=== PATIENT | female | born 1950 | race Caucasian/White ===

== ENCOUNTER → 2017-02-08 | Outpatient (CLI) | payer OTHER ==
[~2017-02-08] MED LIST: ACET-1256 PO; AMLO-114 PO; CBCI; MELO15TA10 PO; MISCCAP80; PRLSR20 PO; RIZA10TA19 PO; SULF500T2 PO; TRAZ50TA35 PO; ZOLP10TA PO
--- NOTE | 2017-02-11 07:49 | MAMMOGRAPHY REPORT ---
BILATERAL DIGITAL SCREENING MAMMOGRAM TOMOSYNTHESIS WITH CAD: 02/08/2017 CLINICAL HISTORY: Routine screening examination. TECHNIQUE: Breast tomosynthesis in addition to standard 2D mammography was performed. Current study was also evaluated with a Computer Aided Detection (CAD) system. COMPARISON: Comparison is made to exams dated: 01/17/2016 ultrasound, 01/17/2016 mammogram, 12/29/2015 mammogram, 11/10/2014 mammogram, 11/10/2013 mammogram, and 08/22/2011 mammogram - [facility]. BREAST COMPOSITION: The tissue of both breasts is heterogeneously dense, which may obscure small mas ses. FINDINGS: There is stable nodularity in the middle and anterior one third of the left breast on the M LO view. Scattered benign-appearing microcalcifications. No new suspicious mass, architectural dist ortion or cluster of microcalcifications is seen. IMPRESSION: ACR BI-RADS CATEGORY 1: NEGATIVE There is no mammographic evidence of malignancy. A 1 year screening mammogram is recommended. The pa tient will receive written notification of the results. Approximately 10% of breast cancers are not detected with mammography. A negative mammographic report should not delay biopsy if a clinically suggestive mass is present. Audrey Torres M.D. ay/:02/09/2017 08:59:43 Real Estate Agent: Amirah MARTINEZ)(M), [facility] letter sent: Normal 1/2 BI-RADS Code: ACR BI-RADS Category 1: Negative
== END | disposition home or self-care (01) ==
LOC: C.MAMM 10:03
PROVIDERS: ATTEND Family Medicine
DX: Z12.31 Encounter for screening mammogram for malignant neoplasm of breast (principal)

== ENCOUNTER 2018-12-09 07:54 | Inpatient (IN) ==
--- NOTE | 2018-11-13 13:13 | PAT Medication Instructions ---
Medication Instructions Date of Service November 13, 2018 Home Medications acetaminophen [Tylenol Extra Strength] 1,000 mg PO UD PRN adalimumab [Humira Pen] 40 mg SUBCUT UD amlodipine 10 mg PO QAM cholecalciferol (vitamin D3) [Vitamin D3] 5,000 unit PO 3XWK clonazepam 1 mg PO HS ferrous sulfate 325 mg PO BID folic acid 1 mg PO QAM lisinopril 5 mg PO QAM loratadine 10 mg PO QAM meloxicam 15 mg PO QAM mometasone 1 applic TOPICAL UD PRN omeprazole 20 mg PO BID rizatriptan [Maxalt-POWER PRESS OPERATOR] 10 mg PO UD PRN sulfasalazine 1 g PO TID trazodone 50 mg PO HS ASK your surgeon for instructions meloxicam 15 mg PO QAM ASK your prescriber and surgeon adalimumab [Humira Pen] 40 mg SUBCUT UD sulfasalazine 1 g PO TID STOP taking 24 hours before surgery mometasone 1 applic TOPICAL UD PRN DO NOT take the morning of surgery cholecalciferol (vitamin D3) [Vitamin D3] 5,000 unit PO 3XWK ferrous sulfate 325 mg PO BID folic acid 1 mg PO QAM lisinopril 5 mg PO QAM loratadine 10 mg PO QAM Take morning of surgery With a small sip of water, OTHERWISE NOTHING TO EAT OR DRINK AFTER MIDNIGHT: acetaminophen [Tylenol Extra Strength] 1,000 mg PO UD PRN (okay to take up to 4 hours prior to surgery if needed) amlodipine 10 mg PO QAM omeprazole 20 mg PO BID rizatriptan [Maxalt-POWER PRESS OPERATOR] 10 mg PO UD PRN (if needed) Take evening before surgery acetaminophen [Tylenol Extra Strength] 1,000 mg PO UD PRN (if needed) clonazepam 1 mg PO HS ferrous sulfate 325 mg PO BID omeprazole 20 mg PO BID rizatriptan [Maxalt-POWER PRESS OPERATOR] 10 mg PO UD PRN (if needed) trazodone 50 mg PO HS Other Notes If you have any questions please call us at [phone] or [phone] or [phone] or [phone]
--- NOTE | 2018-11-14 08:21 | Anesthesiology Consultation ---
Date of Service November 14, 2018 Assessment & Plan (1) Encounter for pre-operative examination: Chart Review Chart Review: Acceptable Risk for Surgery (pending preop testing (labs, EKG, CXR)) and Patient seen in Pre Admission Testing Teaching & Discussion Pre-Anesthesia Teaching/Discussion Notes: Instructed NPO after midnight before surgery,except medications with 15 cc of water. Medication instructions provided according to the PAT guidelines. History Surgery Operation Date: 12/09/18 07:00 Proposed Procedures p Right Total Knee Arthroplasty - Triston Salmon MD Height/Weight Height: 5 ft 3 in Weight: 90.2 kg Allergies Allergy/AdvReac Type Severity Reaction Status Date / Time latex Allergy Mild mild rash Verified 11/07/18 07:57 amoxicillin Allergy Unknown Rash Verified 11/07/18 07:57 cephalexin Allergy Unknown ABD PAIN, Verified 11/07/18 07:57 DIARRHEA , COUGH rosuvastatin AdvReac Unknown MUSCLE PAIN Verified 11/07/18 07:57 simvastatin AdvReac Unknown MUSCLE PAIN Verified 11/07/18 07:57 Medications Home Medications Medication Instructions Recorded Confirmed Last Taken acetaminophen [Tylenol Extra 1,000 mg PO UD PRN 11/07/18 11/07/18 Unknown Strength] adalimumab [Humira Pen] 40 mg SUBCUT UD 11/07/18 11/07/18 Unknown amlodipine 10 mg PO QAM 11/07/18 11/07/18 Unknown cholecalciferol (vitamin D3) 5,000 unit PO 3XWK 11/07/18 11/07/18 Unknown [Vitamin D3] clonazepam 1 mg PO HS 11/07/18 11/07/18 Unknown ferrous sulfate 325 mg PO BID 11/07/18 11/07/18 Unknown folic acid 1 mg PO QAM 11/07/18 11/07/18 Unknown lisinopril 5 mg PO QAM 11/07/18 11/07/18 Unknown loratadine 10 mg PO QAM 11/07/18 11/07/18 Unknown meloxicam 15 mg PO QAM 11/07/18 11/07/18 Unknown mometasone 1 applic TOPICAL UD PRN 11/07/18 11/07/18 Unknown omeprazole 20 mg PO BID 11/07/18 11/07/18 Unknown rizatriptan [Maxalt-HVAC SHEET METAL INSTALLER] 10 mg PO UD PRN 11/07/18 11/07/18 Unknown sulfasalazine 1 g PO TID 11/07/18 11/07/18 Unknown trazodone 50 mg PO HS 11/07/18 11/07/18 Unknown Past Medical History Medical History Acid reflux controlled Anxiety and depression Borderline high cholesterol History of anemia History of migraine headaches Hypertension Obesity Osteoarthritis Psoriasis Ulcerative colitis stable Exercise / Class Metabolic Activity II 4-5 Yardwork/Stairs/Walk up hill Past Surgical History Surgical History History of appendectomy History of section History of colonoscopy History of esophagogastroduodenoscopy (EGD) History of oral surgery FOR MALOCLUSION (NO ROM LIMITATIONS) History of surgery on extremity L LEG TIBIAL PLATEU FX & HARDWARE SINCE REMOVED L ELBOW FRACTURE & HARDWARE SINCE REMOVED History of tonsillectomy and adenoidectomy History of tubal ligation Past Anesthesia History No Family Hx of Anesthesia Complications and Other "Tried to climb out of bed" after jaw surgery. No issues with other surgeries. History of PONV No Hx of PONV and No Hx of Motion Sickness Social History Smoking Status: Never smoker Do You Dip or Chew Tobacco: No Hx Alcohol Use: No substance use type: does not use Review of Systems Reflux controlled. Chronic dry cough (felt seasonally related). Patient denies chest pain, shortness of breath, dyspnea on exertion, wheezing, palpitations. Physical Exam Vital Signs VITALS BP 132/81 P 77 TEMP 97.4 SP02 96%RA RESP 18 PHYSICAL Full neck and c-spine range of motion. Full TMJ range of motion. TMD 3 finger breaths Mallampati Score 1 Dentition: chipped molar, several missing sides/molars Lungs: clear throughout to auscultation Cardiac: regular rate and rhythm, no murmurs noted Spine: normal Carotid arteries: negative bruit Extremities: no edema
--- NOTE | 2018-11-14 09:02 | XRay Report ---
XR chest Pre-admission PA/Lat CLINICAL HISTORY: Preoperative evaluation. COMPARISON STUDY: Chest radiograph September 09, 2014. FINDINGS: Lung lungs are mildly diminished. Elevation of the right hemidiaphragm is unchanged. Linear bibasilar opacities reflect atelectasis or scarring. There is no evidence for pulmonary edema or pne umonia. Moderate enlargement of the cardiac silhouette is noted. IMPRESSION: 1. No acute cardiopulmonary findings. 2. Mild cardiomegaly. 3. Mild elevation of the right hemidiaphragm. Electronically signed by: Favian Stuart M.D. 11/14/2018 9:00 AM
[2018-11-14 10:32] LABS: Basophils # (auto) 0.01 K/uL (0-0.2); Basophils % (auto) 0.2 %; Eosinophils # (auto) 0.25 K/uL (0-0.5); Eosinophils % (auto) 5.2 %; Hematocrit (blood only) 40.1 % (37-47); Hemoglobin 13.7 g/dL (12.0-16.0); Immature Granulocytes # (auto) 0.01 K/uL (0.00-0.02); Immature Granulocytes % (auto) 0.2 %; Mean Corpuscular Hemoglobin 32.1 pg (25-34); Mean Corpuscular Hgb Conc 34.2 g/dL (32-36); Mean Corpuscular Volume 93.9 fL (80-100); Mean Platelet Volume 9.5 fL (7.4-10.4); Monocytes # (auto) 0.61 K/uL (0.11-0.59); Monocytes % (auto) 12.6 %; Neutrophils # (auto) 2.46 K/uL (1.4-6.5); Neutrophils % (auto) 50.8 %; Platelet Count 226 K/uL (130-400); RDW Coefficient of Variation 13.4 % (11.5-14.5); Red Blood Count 4.27 M/uL (4.2-5.4); White Blood Count 4.84 K/uL (4.8-10.8)
[2018-11-14 10:39] LABS: BUN Creatinine Ratio 16.9 (10-20); Calcium 9.3 mg/dl (8.5-10.1); Creatinine Clr Calc Pharmacy 78.6 ml/min; Est GFR (African American) 97.2; Est GFR (Non-African American) 83.8
[2018-11-14 10:44] LABS: Partial Thromboplastin Ratio 0.9; Partial Thromboplastin Time 25.1 Seconds (21.0-31.0); Prothrombin Time 10.4 Seconds (9.0-12.0)
--- NOTE | 2018-12-06 09:34 | History and Physical Report ---
DATE OF ADMISSION: 12/09/2018 CHIEF COMPLAINT: Bilateral knee pain and discomfort, right side greater than left. HISTORY OF PRESENT ILLNESS: The patient is a 68-year-old female who presents for surgical treatment of her right knee. She has got a long history of bilateral knee pain and discomfort that has gradually gotten worse over time. She does have a history of a tibial plateau fracture in the left knee in the past. She continues to be bothered by knee pain. The right knee is a bit worse than the left. Symptoms tend to wax and wane, but it has become more bothersome over time. The more she walks, the more it hurts. If she is active, she pays for it for the next several days. She has nighttime discomfort. She limps more as the day goes on. She would like to have her right knee fixed. PAST MEDICAL HISTORY: 1. Hypertension. 2. Elevated cholesterol. 3. Anxiety. 4. Migraine headaches. 5. Chronic anemia. 6. History of ulcerative colitis. 7. Gastroesophageal reflux disease. 8. Obesity with BMI of 35. PAST SURGICAL HISTORY: Previous surgeries include: 1. T and A. 2. Appendectomy. 3. . 4. Jaw surgery for TMJ. 5. Elbow fracture. 6. Left tibial plateau fracture and subsequent hardware removal. ALLERGIES: KEFLEX WHICH CAUSES DIARRHEA AND A RASH. NOT A TRUE ALLERGIC REACTION. ALSO DESCRIBES ALLERGIES TO STATINS AND LATEX. CURRENT MEDICINES: Include: 1. Amlodipine 10 mg. 2. Lisinopril 5 mg a day. 3. Meloxicam 15 mg a day. 4. Iron sulfate 325 twice a day. 5. Omeprazole 20 mg. 6. Loratadine 10 mg. 7. Trazodone 50 mg at nighttime. 8. Maxalt 10 mg a day. 9. Clonazepam at nighttime. 10. Vitamin D. 11. Humira. SOCIAL HISTORY: A 68-year-old female. She is from [place]. Does not smoke. FAMILY HISTORY: Noncontributory. REVIEW OF SYSTEMS: Significant for underlying ulcerative colitis. She is on Humira. Denies any current chest pain or shortness of breath. No history of DVT or PE. No known bleeding problems. PHYSICAL EXAMINATION: GENERAL: A pleasant, middle-aged female. Looks to be in reasonably good health. HEENT: Benign. NECK: Supple. No lymphadenopathy. LUNGS: Clear to auscultation. HEART: Regular rate and rhythm. ABDOMEN: Soft, nontender, nondistended. EXTREMITIES: Grossly neurovascularly intact except as follows: Examination of the right knee reveals the patient to be ambulates independently. Fairly neutral alignment to her knee. She has got some bony hypertrophy medially and laterally. Small knee effusion. Range of motion 5-120. No instability. No pain with hip motion. X-RAYS: X-rays of the knee reveal advanced bilateral knee DJD. She has got tricompartment disease in the right with a near complete loss of the joint space in all 3 compartments. She has got osteophytes in all 3 compartments. Diffuse osteopenia. ASSESSMENT: A 68-year-old white female with advanced bilateral knee degenerative joint disease, right side more severe than the left. She has a history of ulcerative colitis and likely some type of inflammatory arthritis. She has failed conservative treatment and would like to proceed with right knee replacement. PLAN: We will take her to the Operating Room and do a right total knee replacement. The risks and benefits of this procedure were explained to the patient including but not limited to DVT, PE, , infection, neurological injury, vascular injury, bleeding problem, pain, limited range of motion, stiffness, failure to relieve symptoms, incomplete relief of symptoms, need for further surgery in future, fracture, leg length inequality, nerve palsy, persistent pain, etc. The patient understands and desires to proceed. Informed consent was obtained. We did talk about holding her lisinopril the morning of surgery and the Humira a week before. She will hold her meloxicam 10 days preop. As far as discharge plans, she is planning to be discharged home using [facility]. Her and daughter will assist in her care at home. We will likely put some vancomycin in her cement due to her history of ulcerative colitis and immunocompromised status.
[~2018-12-09 07:54] MED LIST changes: -ACET-1256 PO; +ACETAMINOPHEN 500 MG TAB PO SCH; -AMLO-114 PO; +BUPIVACAINE 0.5 % 5 MG/1 ML PF 10ML VIAL ONE; +BUPIVACAINE LIPOSOME/PF 266 MG, BUPIVACAINE/EPINEPHRINE 50 ML, SODIUM CHLORIDE 0.9% 30 ... INFIL SCH; -CBCI; +FAMOTIDINE 20 MG TAB PO SCH; +GABAPENTIN 300 MG CAP PO SCH; +LR 500ML BOLUS, THEN 15ML/HR IV SCH; +LR 60ML/HR IV SCH; -MELO15TA10 PO; +METOCLOPRAMIDE HCL 10 MG TABLET PO SCH; -MISCCAP80; -PRLSR20 PO; -RIZA10TA19 PO; +ROPIVACAINE 0.5% 5 MG/ML 30 ML VIAL ONE; -SULF500T2 PO; +TRANEXAMIC ACID 1,000 MG **IV Intra-op IV SCH; -TRAZ50TA35 PO; +VANCOMYCIN HCL 1,250 MG in SODIUM CHLORIDE 0.9% 250 ML IV SCH; +VANCOMYCIN HCL IV SCH; -ZOLP10TA PO
--- NOTE | 2018-12-09 08:54 | History & Physical Bridge Note ---
Date of Service December 09, 2018 History & Physical Bridge Note I have examined the patient, reviewed the History & Physical and in the interval since the performance of the History & Physical I have noted the following changes of clinical significance: no changes noted.. Patient with Bilateral Knee DJD. She would like an injection into the left knee while under anesthesia.
[2018-12-09] MEDS ORDERED: fentaNYL citrate 100 MCG/2 ML VIAL ONE (10:46)
[2018-12-09] MEDS ORDERED: PROPOFOL IV EMULSION 10 MG/ML 20 ML VIAL IV ONE (10:46)
[2018-12-09] MEDS ORDERED: MIDAZOLAM HCL 1 MG/ML 2ML VIAL ONE (10:46)
[2018-12-09] MEDS ORDERED: LIDOCAINE HCL 2% 2 ML VIAL/AMP(20MG/ML) INFIL ONE (10:46)
[2018-12-09] MEDS ORDERED: SODIUM CHLORIDE 0.9% PF 50 ML VIAL ONE (11:24)
[2018-12-09] MEDS ORDERED: BUPIVACAINE/EPINEPHRINE 0.25% 1:200,000 30 ML VIAL ONE (11:24)
[2018-12-09] MEDS ORDERED: BUPIVACAINE LIPOSOME 1.3% 266 MG/20 ML VIAL ONE (11:24)
[2018-12-09] MEDS ORDERED: BACITRACIN INJ 50,000 UNIT VIAL ONE (11:24)
[2018-12-09] MEDS ORDERED: BUPIVACAINE 0.5 % 5 MG/1 ML MPF 30ML VIAL ONE (11:32)
[2018-12-09] MEDS ORDERED: VANCOMYCIN HCL 1000MG/20ML VIAL ONE (11:37)
[2018-12-09] MEDS ORDERED: CLINDAMYCIN PHOS 300 MG/2 ML VIAL ONE (11:57)
[2018-12-09] MEDS ORDERED: CLINDAMYCIN 600 MG/54 ML BAG IV SCH (12:45)
[2018-12-09] MEDS ORDERED: BETAMETH SOD PHOS/ACETATE IA 6 MG/ML IM SCH (12:45)
--- NOTE | 2018-12-09 13:22 | Post Operative Brief Note ---
PG Immediate Post Op with CF Date of Surgery December 09, 2018 Pre & Post Diagnosis Operation Date: 12/09/18 10:40 Pre-Op Diagnosis: Bilateral knee degenerative joint disease, right greater than left Post-Op Diagnosis: Bilateral knee degenerative joint disease, right greater than left Procedure Operation Date: 12/09/18 10:40 Actual Procedures p Right Total Knee Replacement(Right) - Triston Salmon MD s Left knee injection(Left) - Triston Salmon MD Surgeon Triston Salmon MD Electric Engine Mechanic Alonso, PAC Estimated Blood Loss 50 Findings Consistent with Post-Op Diagnosis Fluids 700 cc Specimens Specimen Description: Permanent specimen A: right knee bone and tissue Drains Kim Catheter (16fr silicone kim catheter placed without difficulty; ikm demonstrates clear yellow urine. Output measured and recorded by anesthesia.) Complications none Disposition Accompanied Patient To Recovery: No Disposition: Recovery Room
--- NOTE | 2018-12-09 13:50 | XRay Report ---
XR knee RT 2V routine HISTORY: 68 years-old Female Surgical Post Op right hip total joint arthroplasty. History of degener ative joint disease COMPARISON: Bilateral knee radiographs 04/21/2018 TECHNIQUE: 2 views of the right knee FINDINGS: Satisfactory alignment of the right knee total joint arthroplasty and patella resurfacing. Anterior m idline skin winnie are noted along with expected postsurgical soft tissue swelling and deep tissue a ir with surgical drainage catheter. No acute fracture or retained foreign body identified. IMPRESSION: Satisfactory alignment of the right knee total joint arthroplasty. The above report was generated using voice recognition software. It may contain grammatical, syntax o r spelling errors. Electronically signed by: Red Wolff M.D. 12/09/2018 1:49 PM
[2018-12-09] MEDS ORDERED: METOCLOPRAMIDE HCL INJ 5 MG/ML 2 ML VIAL IV PRN (14:23)
[2018-12-09] MEDS ORDERED: MOMETASONE FUROATE 0.1% CR 15 GM TUBE EXT PRN (14:23)
[2018-12-09] MEDS ORDERED: ALUMINUM/MAGNESIUM SUSP 30 ML UDC PO PRN (14:23)
[2018-12-09] MEDS ORDERED: bisacodyL 10 MG SUPP PR PRN (14:23)
[2018-12-09] MEDS ORDERED: HYDROmorphone INJ 0.5 MG/0.5 ML SYR IV PRN (14:23)
[2018-12-09] MEDS ORDERED: NALOXONE HCL 0.4 MG/1 ML VIAL/CARP IV PRN (14:23)
[2018-12-09] MEDS ORDERED: MAGNESIUM HYDROXIDE SUSP 30 ML UDC PO PRN (14:23)
[2018-12-09] MEDS ORDERED: ONDANSETRON INJ 2 MG/ML 2 ML VIAL IV PRN (14:23)
--- NOTE | 2018-12-09 14:30 | Operative Report ---
DATE OF OPERATION: 12/09/2018 SURGEON: Triston Salmon MD JAVA LEAD DEVELOPER: ADRIANNA Yanez PREOPERATIVE DIAGNOSIS: Bilateral knee degenerative joint disease. POSTOPERATIVE DIAGNOSIS: Bilateral knee degenerative joint disease. PROCEDURE PERFORMED: 1. Right cemented posterior stabilized total knee arthroplasty. 2. Left knee injection with 2 mL Celestone and 8 mL of Marcaine. COMPLICATIONS: None. ESTIMATED BLOOD LOSS: 50 mL. FLUID REPLACEMENT: 700 mL crystalloid fluid replacement. ANESTHESIA: Spinal with adductor canal block. DRAINS: None. SPECIMENS: Right knee sent for pathology. OPERATIVE INDICATIONS: The patient is a 68-year-old fairly active female with history of underlying ulcerative colitis. Over the years, she has developed increased pain, discomfort and arthritic changes in both knees. The right knee has been a bit worse than the left. She had failed conservative treatment. She elected to proceed with total knee arthroplasty. OPERATIVE FINDINGS: Operative findings were advanced right knee DJD. She had grade 4 [id number] disease in all 3 compartments. Diffuse osteopenia. Moderate size joint effusion. Chronic pannus throughout the knee. OPERATIVE IMPLANTS: Operative implants consisted of: 1. Biomet Vanguard size 60 right posterior bifemoral component. 2. Biomet size 67 tibial tray. 3. A 12 mm posterior stabilized polyethylene insert. 4. A 28 x 8 all poly patella. OPERATIVE PROCEDURE: The patient was taken to the operating room, identified and placed on the operating table in supine position. All contact areas were appropriately padded. IV antibiotics provided by anesthesia team. A spinal anesthetic and adductor canal block had been provided in the holding area. Bear catheter was placed in sterile fashion. Right thigh tourniquet was then placed and the right lower extremity was then prepped and draped in usual sterile fashion. The right leg was elevated and exsanguinated with Esmarch and tourniquet was placed at 300 mmHg. An anterior approach of the right knee was then performed through a longitudinal incision centered over the patella. Sharp dissection was carried through subcutaneous tissue down below the extensor mechanism. Medial parapatellar arthrotomy incision was made. Some subperiosteal dissection was carried out medially. The fat pad resected from beneath the patellar tendon. The lateral patellofemoral ligament was released. I did do a complete synovectomy of her pannus, which looked to be chronic. The knee was flexed. The osteophytes were taken off the distal femur. The ACL and PCL were then released from the distal femur and the tibia subluxated anteriorly. External tibial alignment jig was then placed in the anterior face of the tibia and adjusted to 14 mm medially. Proximal tibial cut was made to remove about a millimeter or 2 of bone from most deficient aspect of the medial tibial plateau. Some osteophytes were taken off medial and posteromedially. Tibia sized to a size 67. Attention was then drawn to the femur. The distal femur was entered with a sharp drill. Intramedullary canal was suctioned. A right 5-degree valgus cutting guide was placed. Distal femoral cutting block was pinned in place. Distal femoral cut was made to take an additional 3 mm of bone off the distal femur. The femur was then sized to a size 60. We did downsize this slightly. The AP cutting block was pinned parallel to the epicondylar axis, which was 3 degrees of external rotation. The anterior cut, anterior chamfer cut, posterior cut, posterior chamfer cuts were made. Box cutting guide was placed and adjusted slightly lateral and the box cut was made. The knee was flexed. The remnants of the medial and lateral menisci were excised. The posterior osteophytes were removed. The trial femoral component was placed. The tibial tray was pinned in maximum external rotation and drill and stem punch were used to create defect in proximal tibia for the tibial tray. The knee was then trialed and the 12 mm insert fit most appropriately. Attention was then drawn to patella. The patella was cleaned of all soft tissues. Patella thickness measured 19 mm in thickness and was cut down to 13. It was sized to a size 28 patella. Lug holes were drilled for a 28 patella. Lateral osteophyte was removed. Patella button was placed. Knee was taken through range of motion, patella tracked nicely with no thumbs test. Attention was then turned toward placement of permanent components. All trial components were removed. A bone plug was placed in the distal femur to limit blood loss. A double batch of Palacos G cement was mixed. I did add an additional gram of vancomycin due to her immune compromised state due to her ulcerative colitis and on immunosuppressant medicines. A Biomet Vanguard size 60 right posterior bifemoral component, size 67 tibial tray, a 12 mm posterior stabilized polyethylene insert, and a 28 x 8 all poly patella then cemented in place. Knee was brought into full extension until cement hardened. Final cement check was then performed. Pericapsular tissues were injected with a total of 100 mL of combination of 20 mL of Exparel, 30 mL of normal saline, 50 mL of 0.25% Marcaine with epinephrine. The patient did receive 1 gram of tranexamic acid. The tourniquet was then let down for final tourniquet time of 56 minutes. Hemostasis was assured with use of electrocautery. The wound was once again irrigated. The extensor mechanism was then closed with combination of #1 PDS suture and #1 Vicryl suture in [id number] fashion. Extensor mechanism was checked and found to be intact. The subcutaneous tissue was then closed with #2 Dexon suture in a buried interrupted fashion. Skin was closed with skin winnie. Leg was then cleaned and dried and a sterile dressing of Xeroform, 4 x 4, sterile cast padding and Giovanni bandage were applied. The patient then transferred to the recovery room in stable condition. The patient tolerated the procedure well with no complications. All needle and sponge counts were correct at the end of the operation. ADDENDUM At the beginning of the operation after the patient was anesthetized and placed on the operating table, the left knee was injected. I cleaned the left knee joint with alcohol and then 2 mL of Celestone and 8 mL of Marcaine injected in the left knee in a sterile fashion. A sterile bandage was placed over the injection site. I attest to the content of the Intraoperative Record and any orders documented therein. Any exception s are noted below.
[2018-12-09] MEDS ORDERED: RIZATRIPTAN BENZOATE MLT 10 MG TAB PO PRN (14:44)
[2018-12-09] MEDS: SODIUM CHLORIDE 0.9% 1000ML 1,000 ML IV SCH (14:48)
[2018-12-09] MEDS: sulfaSALAzine 500 MG TABLET PO SCH ×2 (15:05→20:43)
--- NOTE | 2018-12-09 16:20 | Anesthesiology Progress Note ---
Date of Service December 09, 2018 Anesthesia Post Procedure Vital Signs Vital Signs: Temp Pulse Pulse Resp BP Pulse Ox 12/09/18 15:13 36.3 C L 97 H 18 165/93 H 99 12/09/18 14:50 36.4 C L 96 H 12 151/88 H 95 12/09/18 14:20 36.5 C 96 H 20 139/81 95 12/09/18 14:00 36.4 C L 92 H 15 126/75 100 12/09/18 13:45 90 23 125/73 100 12/09/18 13:35 91 H 23 129/66 100 12/09/18 13:29 36.1 C L 98 H 16 126/71 99 12/09/18 08:38 36.5 C 96 H 20 171/94 H 96 Pain Intensity Bilateral Knee: Pain Intensity: 3 Transfer of Care Handoff Completed per policy Notes Mental Status: alert / awake / arousable Patient Amnestic to Procedure: Yes Nausea / Vomiting: adequately controlled Pain: adequately controlled Airway Patency, RR, SpO2: stable & adequate BP & HR: stable & adequate Hydration State: stable & adequate Anesthetic Complications: no major complications apparent and Pt Satisfied with anesthetic care
[2018-12-09] MEDS: OXYCODONE HCL IR 5 MG TAB (IMMEDIATE RELEASE) PO PRN (16:51)
[2018-12-09] MEDS: ACETAMINOPHEN 500 MG TAB PO SCH (16:52)
[2018-12-09] MEDS: KETOROLAC TROMETHAMINE 15 MG/ML VIAL IV SCH ×2 (16:53→22:23)
[2018-12-09] MEDS: ASCORBIC ACID 500 MG TAB PO SCH (16:56)
[2018-12-09] MEDS: FERROUS GLUCONATE 324 MG TAB PO SCH (16:57)
[2018-12-09] MEDS ORDERED: TRANEXAMIC ACID 1,000 MG in 0.9 % SODIUM CHLORIDE 100 ML IV SCH (19:23)
[2018-12-09] MEDS: CLINDAMYCIN 600 MG in DEXTROSE 5% 50 ML IV SCH (20:36)
[2018-12-09] MEDS: TAPENTADOL HCL ER 50 MG TABCR PO SCH (20:37)
[2018-12-09] MEDS: PANTOprazole 40 MG TAB PO SCH (20:42)
[2018-12-09] MEDS: TRAZODONE HCL 50 MG TAB PO SCH (20:42)
[2018-12-09] MEDS: clonazePAM 1 MG TAB PO SCH (20:42)
[2018-12-09] MEDS: SENNA 8.6 MG TAB PO SCH (20:43)
[2018-12-09] MEDS: DOCUSATE SODIUM 100 MG CAP PO SCH (20:43)
[2018-12-09] MEDS: ASPIRIN 81 MG ECTAB PO SCH (20:44)
[2018-12-09] MEDS ORDERED: NON-FORMULARY MEDICATION (Ferrous Sulfate 325 MG) PO SCH (21:00)
[2018-12-09] MEDS: MISSING PHYSICIAN SIGNATURE ON ORDER SCH ×5 (22:11→22:20)
[2018-12-10] MEDS: SODIUM CHLORIDE 0.9% 1000ML 1,000 ML IV SCH (00:21)
[2018-12-10] MEDS: OXYCODONE HCL IR 5 MG TAB (IMMEDIATE RELEASE) PO PRN ×4 (00:21→23:49)
[2018-12-10] MEDS: CLINDAMYCIN 600 MG in DEXTROSE 5% 50 ML IV SCH (03:20)
[2018-12-10] MEDS: KETOROLAC TROMETHAMINE 15 MG/ML VIAL IV SCH ×4 (03:21→21:47)
[2018-12-10] MEDS: ACETAMINOPHEN 500 MG TAB PO SCH ×3 (05:49→21:47)
[2018-12-10 05:57] LABS: Hematocrit (blood only) 34.9 % (37-47); Mean Corpuscular Hemoglobin 31.6 pg (25-34); Mean Corpuscular Hgb Conc 34.4 g/dL (32-36); Mean Corpuscular Volume 91.8 fL (80-100); Mean Platelet Volume 9.2 fL (7.4-10.4); Platelet Count 218 K/uL (130-400); RDW Coefficient of Variation 13.1 % (11.5-14.5); RDW Standard Deviation 43.9 fL (36.4-46.3); White Blood Count 12.88 K/uL (4.8-10.8)
[2018-12-10 06:34] LABS: Calcium 8.1 mg/dl (8.5-10.1); Creatinine Clr Calc Pharmacy 76.1 ml/min; Est GFR (African American) 94.1; Est GFR (Non-African American) 81.2; Potassium 3.7 mmol/L (3.5-5.1)
[2018-12-10] MEDS: MULTIVITAMIN TAB PO SCH (08:24)
[2018-12-10] MEDS: lisinopriL 5 MG TAB PO SCH (08:25)
[2018-12-10] MEDS: sulfaSALAzine 500 MG TABLET PO SCH ×3 (08:25→20:29)
[2018-12-10] MEDS: LORATADINE 10 MG TAB PO SCH (08:25)
[2018-12-10] MEDS: ASPIRIN 81 MG ECTAB PO SCH ×2 (08:26→20:28)
[2018-12-10] MEDS: FOLIC ACID 1 MG TAB PO SCH (08:26)
[2018-12-10] MEDS: AMLODIPINE BESYLATE 5 MG TAB PO SCH (08:27)
[2018-12-10] MEDS: DOCUSATE SODIUM 100 MG CAP PO SCH ×2 (08:27→20:29)
[2018-12-10] MEDS: PANTOprazole 40 MG TAB PO SCH ×2 (08:27→20:28)
[2018-12-10] MEDS: ASCORBIC ACID 500 MG TAB PO SCH ×2 (08:28→16:33)
[2018-12-10] MEDS: FERROUS GLUCONATE 324 MG TAB PO SCH ×2 (08:28→16:32)
[2018-12-10] MEDS: TAPENTADOL HCL ER 50 MG TABCR PO SCH ×2 (08:40→20:29)
--- NOTE | 2018-12-10 08:48 | Anesthesiology Progress Note ---
Date of Service December 10, 2018 Anesthesia Post Procedure Vital Signs Vital Signs: Temp Pulse Pulse Resp BP Pulse Ox 12/10/18 07:43 36.7 C 83 16 144/75 H 95 12/10/18 03:49 36.7 C 76 16 115/71 93 12/09/18 23:10 36.7 C 88 16 123/74 90 12/09/18 20:06 36.5 C 98 H 16 143/79 H 96 12/09/18 17:39 36.4 C L 91 H 16 150/76 H 94 12/09/18 17:04 36.4 C L 92 H 16 161/71 H 93 12/09/18 15:13 36.3 C L 97 H 18 165/93 H 99 12/09/18 14:50 36.4 C L 96 H 12 151/88 H 95 12/09/18 14:20 36.5 C 96 H 20 139/81 95 12/09/18 14:00 36.4 C L 92 H 15 126/75 100 12/09/18 13:45 90 23 125/73 100 12/09/18 13:35 91 H 23 129/66 100 12/09/18 13:29 36.1 C L 98 H 16 126/71 99 Pain Intensity Bilateral Knee: Pain Intensity: 3 Right Knee: Pain Intensity: 2 Notes Mental Status: alert / awake / arousable and participated in evaluation Patient Amnestic to Procedure: Yes Nausea / Vomiting: adequately controlled Pain: adequately controlled Airway Patency, RR, SpO2: stable & adequate BP & HR: stable & adequate Hydration State: stable & adequate Neuraxial Anesthesia: was administered and sensory block resolved Anesthetic Complications: no major complications apparent and Pt Satisfied with anesthetic care
[2018-12-10] MEDS ORDERED: CHOLECALCIFEROL 1,000 UNITS TAB PO SCH (09:00)
--- NOTE | 2018-12-10 12:57 | Progress Note ---
DATE: 12/10/2018 SUBJECTIVE: A 68-year-old white female postop day 1 from right total knee replacement and left knee injection. She is doing pretty well. Pain has been pretty well controlled. No chest pain or shortness of breath. Not feeling dizzy or lightheaded. OBJECTIVE: VITAL SIGNS: Temperature 36.6. Vital signs stable. GENERAL: Reveals a pleasant, middle-aged female. She is sitting on bed, looks pretty comfortable. EXTREMITIES: Examination of the right leg reveals the leg to be well aligned. Dressing is clean, dry and intact. She can dorsiflex and plantarflex her foot appropriately. She is neurologically intact. LABORATORY DATA: Hemoglobin 12.0, hematocrit 34.5. Electrolytes are stable. ASSESSMENT: A 68-year-old white female postoperative day 1 from right knee replacement and left knee injection, doing pretty well. Pain is controlled. She is neurologically intact. PLAN: 1. DVT prophylaxis including thigh-high TEDs, SCDs, and aspirin twice a day. 2. PT/OT. Weight bear as tolerated. Right total knee protocol. 3. Pain control, doing pretty well with current pain regimen. 4. Disposition: She is planning to be discharged home with some home health once adequately recovered and stable.
[2018-12-10] MEDS: SENNA 8.6 MG TAB PO SCH (20:28)
[2018-12-10] MEDS: TRAZODONE HCL 50 MG TAB PO SCH (20:29)
[2018-12-10] MEDS: clonazePAM 1 MG TAB PO SCH (20:29)
[2018-12-11] MEDS: KETOROLAC TROMETHAMINE 15 MG/ML VIAL IV SCH ×2 (05:17→11:53)
[2018-12-11] MEDS: ACETAMINOPHEN 500 MG TAB PO SCH (05:17)
[2018-12-11] MEDS: TAPENTADOL HCL ER 50 MG TABCR PO SCH (08:49)
[2018-12-11] MEDS: AMLODIPINE BESYLATE 5 MG TAB PO SCH (08:50)
[2018-12-11] MEDS: FERROUS GLUCONATE 324 MG TAB PO SCH (08:50)
[2018-12-11] MEDS: ASPIRIN 81 MG ECTAB PO SCH (08:50)
[2018-12-11] MEDS: PANTOprazole 40 MG TAB PO SCH (08:50)
[2018-12-11] MEDS: MULTIVITAMIN TAB PO SCH (08:50)
[2018-12-11] MEDS: sulfaSALAzine 500 MG TABLET PO SCH (08:51)
[2018-12-11] MEDS: lisinopriL 5 MG TAB PO SCH (08:52)
[2018-12-11] MEDS: LORATADINE 10 MG TAB PO SCH (08:52)
[2018-12-11] MEDS: FOLIC ACID 1 MG TAB PO SCH (08:52)
[2018-12-11] MEDS: ASCORBIC ACID 500 MG TAB PO SCH (08:52)
[2018-12-11] MEDS: DOCUSATE SODIUM 100 MG CAP PO SCH (08:53)
--- NOTE | 2018-12-11 09:32 | Progress Note ---
DATE: 12/11/2018 SUBJECTIVE: A 68-year-old white female postop day 2 from a right knee replacement and left knee injection. She is doing pretty well. Pain is controlled. Therapy went pretty well. No chest pain or shortness of breath. Not feeling dizzy or lightheaded. OBJECTIVE: VITAL SIGNS: Temperature 36.4. Vital signs stable. GENERAL: Shows a pleasant, middle-aged female. She was on her way walking around her room, going to the bathroom this morning when I visited her. EXTREMITIES: Her leg is well aligned. Dressing is clean, dry and intact. No significant drainage. Calf is soft and supple. Little bit of bruising posteriorly. She is neurologically intact. ASSESSMENT: A 68-year-old white female postoperative day 2 from a right knee replacement and left knee injection. She is doing pretty well. Pain is controlled. PLAN: 1. DVT prophylaxis including thigh-high TEDs, SCDs, and aspirin twice a day. 2. PT/OT. Weight bear as tolerated. Right total knee protocol. 3. Pain control, doing pretty well with current pain regimen. 4. Disposition: Plan to discharge her home with some home health later today.
[2018-12-11] MEDS: OXYCODONE HCL IR 5 MG TAB (IMMEDIATE RELEASE) PO PRN (11:56)
--- NOTE | 2018-12-16 15:24 | Discharge Summary ---
ADMITTING PHYSICIAN AND SURGEON: Dr. Triston Salmon. ADMITTING DIAGNOSIS: Bilateral knee degenerative joint disease. PROCEDURE PERFORMED: 1. Right total knee arthroplasty. 2. Left knee injection. SECONDARY DIAGNOSES: Hypertension, elevated cholesterol, anxiety, migraines, chronic anemia, history of ulcerative colitis, gastroesophageal reflux disease and obesity. CONSULTS: None obtained. HISTORY AND PHYSICAL EXAMINATION: Well documented in the patient's chart. HOSPITAL COURSE: The patient was admitted on 12/09/2018 underwent total knee arthroplasty, tolerated the procedure well. There were no complications. She was transferred to the PACU postoperatively and later to the orthopedic floor for further care. She was given clindamycin for antibiotic prophylaxis, GULSHAN stockings, SCDs and aspirin for DVT prophylaxis. Hemoglobin, hematocrit and vital signs were monitored during her hospital stay and remained stable. She did not require any blood transfusions. There were no complications. On postoperative day 2, she was tolerating a regular diet, pain was controlled with oral pain medicine. She was participating in physical therapy. Postop day 2, she was discharged home, set up with home health services, given printed discharge instructions as well as new prescriptions for extra strength Tylenol, aspirin and oxycodone. Continue her home medications, continue physical therapy, weightbearing as tolerated, GULSHAN stockings. Follow up approximately 2 weeks postop or sooner if there are any problems or concerns.
== END 2018-12-11 13:01 | disposition home health service (06) | DRG 470 ==
LOC: ASU 07:54 → 3E 13:26